=== PATIENT | female | born 1965 | race Caucasian/White ===

== ENCOUNTER 2018-08-29 06:39 | Day surgery (SDC) | payer OTHER ==
[~2018-08-29] VITALS: Ht 152.4 cm; Wt 67.5 kg
[2018-08-29] VITALS (12 sets, daily range): BP systolic 99–137; BP diastolic 59–90; PULSE 64–72; RESP 12–21; Ht 152.4 cm; Wt 67.5 kg
[2018-08-29] MEDS ORDERED: SOD CHLORIDE 0.9% 1,000 ML IV SCH (07:00)
[2018-08-29] MEDS ORDERED: CEFAZOLIN 2 GM/50 ML (PMX) 50 ML IVPB ONE (07:00)
[2018-08-29] MEDS ORDERED: DESFLURANE 15 MIN ONE (07:00)
[2018-08-29] MEDS ORDERED: METF500T3 PO (07:37)
[2018-08-29] MEDS ORDERED: LISI-471 PO (07:37)
[2018-08-29] MEDS ORDERED: HYDR25TA6 PO (07:37)
[2018-08-29] MEDS ORDERED: BUPIVACAINE 0.25% (MPF) 30 ML INJ ONE (09:16)
[2018-08-29] MEDS ORDERED: TRIMETHOBENZAMIDE 100 MG/ML VIAL IM PRN (09:30)
[2018-08-29] MEDS ORDERED: ALBUTEROL 0.083% (NEB) 2.5 MG/3 ML AMP HHN PRN (09:30)
[2018-08-29] MEDS ORDERED: hydrALAzine 20 MG INJ IV PRN (09:30)
[2018-08-29] MEDS ORDERED: MEPERIDINE 25 MG INJ IV PRN (09:30)
[2018-08-29] MEDS ORDERED: ONDANSETRON 4 MG INJ IV PRN (09:30)
[2018-08-29] MEDS ORDERED: DIPHENHYDRAMINE 50 MG INJ IV PRN (09:30)
[2018-08-29] MEDS ORDERED: LABETALOL HCL 20MG INJ IV PRN (09:30)
[2018-08-29] MEDS ORDERED: OXYCODONE/ACETAMINOPHEN (5/325) TAB PO PRN ×2 (09:30)
[2018-08-29] MEDS ORDERED: FENTAnyl 50 MCG/ML VIAL IV PRN ×3 (09:30)
[2018-08-29] MEDS ORDERED: MIDAZOLAM 1 MG/ML 2 ML INJ IV PRN (09:30)
[2018-08-29] MEDS ORDERED: IPRATROPIUM (NEB) 0.5 MG/2.5 ML AMP HHN PRN (09:30)
[2018-08-29] MEDS ORDERED: HYDROmorphONE 1 MG/5 ML IV SYRINGE IV PRN ×3 (09:30)
[2018-08-29] MEDS ORDERED: EPHEDrine SULFATE 50 MG/5 ML SYG IV PRN (09:30)
--- NOTE | 2018-08-29 09:31 | PREAC ---
Date/Time of Note Date/Time of Note DATE: 08/29/18 TIME: 09:30 Anesthesia Eval and Record Evaluation Time Pre-Procedure Interview DATE: 08/29/18 TIME: 09:30 Age 53 Sex female NPO: 8 hrs Preoperative diagnosis LEFT INGUINAL MASS Planned procedure EXCISION LEFT INGUINAL MASS Past Medical History Past Medical History: Includes Cardio: HTN Endo: Diabetes Surgery & Anesthesia Issues No known issue (RIHR, C SECTION) Meds Anticoagulation: No Beta Vivi within 24 hr: No Reason Beta Vivi not given: Pt. not on B-Vivi Reported Medications Hydrochlorothiazide* (Hydrochlorothiazide*) 25 Mg Tab, 25 MG PO DAILY, #30 TAB 08/29/18 Metformin Hcl* (Metformin Hcl* ER) 500 Mg Tab.sr.24h, 500 MG PO DAILY, #30 TAB 08/29/18 Lisinopril* (Lisinopril*) 20 Mg Tablet, 20 MG PO DAILY, #30 TAB 08/29/18 Current Medications Sodium Chloride 1,000 ml @ 75 mls/hr [id number] IV ; Start 08/29/18 at 07:00; Stop 08/29/18 at 20:19 Meds reviewed: Yes Allergies Coded Allergies: No Known Allergy (Unverified , 08/29/18) Allergies Reviewed: Yes Labs/Studies Labs Reviewed: Reviewed by anesthesiologist test: Negative Pre-procedure Exam Last vitals Vital Signs Date Temp Pulse Resp B/P (MAP) Pulse Ox O2 O2 Flow FiO2 Time Delivery Rate 08/29/18 97.5 68 16 137/90 97 Room Air 07:33 (106) Airway: Adequate mouth opening, Adequate thyromental dist Mallampati: Mallampati II Teeth: Normal Lung: Normal Heart: Normal ASA Physical Status ASA physical status: 2 Emergency: None Planned Anesthetic General/MAC: ETT, LMA Planned Pain Management Parenteral pain med Pre-operative Attestations Prior to commencing anesthesia and surgery, the patient was re-evaluated, there was verification of: *The patient's identity *The results of appropriate recent lab work and preoperative vital signs *The above evaluation not changing prior to induction *Anesthetic plan, risk benefits, alternative and complications discussed with patient/family; questions answered; patient/family understands, accepts and wishes to proceed. Onur Mallory M.D. Aug 29, 2018 09:31
[2018-08-29] MEDS ORDERED: MIDAZOLAM 1 MG/ML 2 ML INJ ONE (09:41)
[2018-08-29] MEDS ORDERED: FENTAnyl 50 MCG/ML VIAL ONE (09:41)
[2018-08-29] MEDS ORDERED: GLYCOPYRROLATE 0.4 MG INJ ONE (09:41)
[2018-08-29] MEDS ORDERED: CEFAZOLIN 1 GM INJ ONE (09:41)
[2018-08-29] MEDS ORDERED: ONDANSETRON 4 MG INJ ONE (09:41)
[2018-08-29] MEDS ORDERED: PROPOFOL 20 ML ONE (09:41)
[2018-08-29] MEDS ORDERED: ROCURONIUM 50 MG INJ ONE (09:41)
[2018-08-29] MEDS ORDERED: NEOSTIGMINE 3 MG/3 ML SYRINGE ONE (09:41)
[2018-08-29] MEDS ORDERED: DEXAMETHASONE 4 MG/ML 5 ML INJ ONE (09:48)
[2018-08-29] MEDS ORDERED: KETOROLAC 30 MG INJ ONE (09:57)
--- NOTE | 2018-08-29 10:09 | OPR ---
Date/Time of Note Date/Time of Note DATE: 08/29/18 TIME: 10:08 Operative Report Procedure Date: Aug 29, 2018 Preoperative Diagnosis left groin mass 4 cm Postoperative Diagnosis same Operation/Procedure Performed 1. excision of left groin mass 4 cm mass 4 cm incision 2. localized adjacent tissue transfer with the use of skin flaps 8 sq cm defect of left groin 3. 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 She requests surgical excision of the mass. Risks alternatives benefits and percent were discussed the patient. Patient expressed understanding consents to the operation. Procedure Description Patient is taken to the OR and prepped and draped in usual sterile fashion. Surgical time was performed. IV antibiotics given. Elliptical incision is made with a 15 blade over the left groin mass. Dissection with cautery was carried onto the mass and the mass was circumferentially excised. Good hemostasis established. Due to the tissue defect localized adjacent to his transfer with these of skin flaps performed. Multilayer closure with interrupted 3-0 Vicryl and running 4-0 Monocryl. Therapeutic contains local anesthesia was injected at the incision site. Steri-Strips and dry dressings were applied. Michelle PETERSON Aug 29, 2018 10:09
--- NOTE | 2018-08-29 10:21 | PAC ---
Date/Time of Note Date/Time of Note DATE: 08/29/18 TIME: 10:21 Post-Anesthesia Notes Post-Anesthesia Note Last documented vital signs Vital Signs Date Temp Pulse Resp B/P (MAP) Pulse Ox O2 O2 Flow FiO2 Time Delivery Rate 08/29/18 97.5 68 16 137/90 97 Room Air 10:21 (106) Activity: WNL Respiratory function: WNL Cardiovascular function: WNL Mental status: Baseline Pain reasonably controlled: Yes Hydration appropriate: Yes Nausea/Vomiting absent: Yes Onur Mallory M.D. Aug 29, 2018 10:21
[2018-08-29] MEDS ORDERED: HYDROCODONE/APAP (5/325) TAB PO ONE (10:30)
== END 2018-08-29 11:43 | disposition home or self-care (01) ==
LOC: SDS 06:39
PROVIDERS: ATTEND Surgery
DX: D21.5 Benign neoplasm of connective and other soft tissue of pelvis (principal); I10 Essential (primary) hypertension; E11.9 Type 2 diabetes mellitus without complications
CPT/HCPCS: 14000; 82962; 84703; J0690; J1100; J1885; J2175; J2250; J2405; J3010; Z7512; Z7610; 88307; J2710